=== PATIENT | male | born 1950 | race Caucasian/White ===

== ENCOUNTER 2022-04-24 07:47 | Inpatient (IN) | payer OTHER ==
[~2022-04-24] VITALS: Ht 177.8 cm; Wt 79.5 kg
[2022-04-24 08:33] LABS: International Normalized Ratio 1.4; Prothrombin Time Results 14.4 Sec (9.7-11.5)
[2022-04-24 08:37] LABS: Albumin/Globulin Ratio 0.6 (0.8-1.8); Bilirubin, Total 0.4 mg/dL (0.1-1.0); Bun/Creatinine Ratio 37.8 (12.0-20.0); Calcium, Blood 8.7 mg/dL (8.5-10.1); Creatinine, Blood 0.87 mg/dL (0.60-1.20); Globulin, Blood 3.3 g/dL (2.2-4.0); Potassium, Blood 4.6 mmol/L (3.5-5.5); Total Protein, Blood 5.3 g/dL (6.4-8.2)
[2022-04-24 08:39] LABS: BASOPHILS ABSOLUTE AUTO 0.05 K/mm3 (0.00-0.23); BASOPHILS PERCENT AUTO 0 % (0-2); EOSINOPHILS ABSOLUTE AUTO 0.03 K/mm3 (0.00-0.68); EOSINOPHILS PERCENT AUTO 0 % (0-6); Hematocrit 21.8 % (37.0-53.0); IMMATURE GRAN ABSOLUTE AUTO 0.81 K/mm3 (0.00-0.10); IMMATURE GRAN PERCENT AUTO 5 % (0-1); LYMPHOCYTES ABSOLUTE AUTO 1.77 K/mm3 (0.84-5.20); LYMPHOCYTES PERCENT AUTO 10 % (21-46); MONOCYTES ABSOLUTE AUTO 1.72 K/mm3 (0.16-1.47); MONOCYTES PERCENT AUTO 10 % (4-13); Mean Corpuscular HGB 24.2 pg (26.0-34.0); Mean Corpuscular HGB Conc 26.1 g/dL (31.5-36.5); Mean Corpuscular Volume 92 fL (80-100); Mean Platelet Volume 10.7 fL (9.1-12.4); NEUTROPHILS ABSOLUTE AUTO 13.71 K/mm3 (1.96-9.15); NEUTROPHILS PERCENT AUTO 76 % (41-73); NRBC ABSOLUTE 1.38 K/mm3 (0.00-0.02); NRBC Auto 7.6 /100 WBC (0.0-0.2); RDW Coefficient Variation 21.6 % (11.7-14.2); RDW Standard Deviation 70.6 fL (35.1-46.3); Red Blood Cell Count 2.36 M/mm3 (4.30-5.90); White Blood Cell Count 18.09 K/mm3 (4.00-11.30)
[2022-04-24 08:42] LABS: Platelet Count 1018 K/mm3 (150-400)
[2022-04-24 08:44] LABS: Hemoglobin 5.7 g/dL (13.5-17.5)
[2022-04-24 09:36] LABS: Source, Urine Foley catheter
[2022-04-24 09:43] LABS: Appearance, Urine Clear (Clear); Bilirubin, Urine Neg (Neg); Blood, Urine 2+ (Neg); Color, Urine Yellow (P-Yellow); Glucose Qualitative, Urine 1+ (Neg); Ketones, Urine 2+ (Neg); Leukocyte Esterase, Urine Neg (Neg); Nitrite, Urine Neg (Neg); Protein, Urine 3+ (Neg); Specific Gravity, Urine 1.025 (1.003-1.022); Urobilinogen, Urine NORM (Normal)
[2022-04-24 10:00] LABS: Calcium, Ionized (POC) 1.21 mmol/L (1.10-1.46); Chloride (POC) 105 mmol/L (98-108); Creatinine (POC) 3.6 mg/dL (0.8-1.3); Glucose (ISTAT POC) 137 mg/dL (70-99); Hemoglobin (POC) 6.8 g/dL (13.5-17.5); Potassium (POC) 5.7 mmol/L (3.5-5.5); Sodium (POC) 143 mmol/L (135-148); Total CO2 (POC) 28 mmol/L (21-32)
[2022-04-24 10:26] LABS: Bacteria Mod /hpf; Mucus Light (0-Heavy); Squamous Epithelial Cells Not Seen /hpf (Few)
[2022-04-24 10:27] LABS: Hyaline Casts 0-2 /lpf (0-2)
[2022-04-24 12:41] LABS: Hematocrit 24.4 % (37.0-53.0); Hemoglobin 7.4 g/dL (13.5-17.5)
--- NOTE | 2022-04-24 13:30 | NUR ---
ADMITTED TO ICU REPORT FROM KATHYA WOOD. PT ARRIVES AT 1315. ADMIT POST PEA ARREST. PT INTUBATED, VENT SETTINGS AC/VC 14/450/5/40%. LUNGS COARSE IN LLL, CLEAR IN OTHERS. THICK MONTALVO SECRETIONS THROUGH ETT, SENT TO LAB. 8.0 ETT, 23 AT [facility]. SR ON MONITOR, RATE 80'S. BP STABLE. WHILE SEDATION OFF DURING TRANSFER, PT SQUEEZED RIGHT HAND. OPENED EYES SPONT, DID NOT TRACK. WITHDRAWS TO PAIN. PROPOFOL RESTARTED AT 25 MCG/KG/MIN. ABD DISTENDED, TYMPANIC. MULTIPLE ATTEMPTS TO REPOSITION OGT, LIKELY HIATAL HERNIA. XRAY VIEW BY JASMIN CASTELLANOS TO PLACE TO LIS, SCANT BROWN EMESIS IN TUBE. VÁZQUEZ PATENT, DRAINING CLEAR YELLOW URINE TO GRAVITY. CODE STATUS OBTAINED FROM PREVIOUS ADMISSION, DNR.
[2022-04-24 17:35] LABS: PCO2 Arterial 55.1 mmHg (35-45); PO2 Arterial 60.9 mmHg (80-100); pH Blood Arterial 7.38 (7.35-7.45)
--- NOTE | 2022-04-24 17:41 | NUR ---
SHIFT SUMMARY NO ACUTE CHANGES THIS SHIFT. TURNED SEDATION OFF FOR SHORT PERIOD OF TIME, PT ABLE TO FOLLOW SIMPLE COMMANDS. CHANGED TO SPONT VENT SETTINGS, INCREASED RR, LOW TV, RESTARTED SEDATION AND SWITCHED BACK TO AC/VC. ATTEMPTED TO ADVANCE OGT UNSUCCESSFULLY. IN PROXIMAL STOMACH. OK FOR LIS PER DR QUINTERO. VÁZQUEZ PATENT, DRAINED 350 ML CLEAR YELLOW URINE TO GRAVITY. VSS. WILL CONTINUE TO MONITOR UNTIL REPORT TO ONCOMING NURSE.
[2022-04-24 18:03] LABS: Hematocrit 24.8 % (37.0-53.0); Hemoglobin 7.7 g/dL (13.5-17.5)
--- NOTE | 2022-04-24 19:00 | NUR ---
ASSUMED CARE ASSUMED CARE OF PATIENT. REMAINS INTUBATED- AC/VC 14/450/5/40%. RR 20s. SEDATED WITH PROPOFOL AT 20MCG/KG/MIN. OPENS EYES TO VERBAL STIMULI. FOLLOWS SIMPLE COMMANDS TO SQUEEZE HANDS AND WIGGLE TOES. BILATERAL SOFT WRIST RESTRAINTS IN PLACE TO PREVENT SELF-EXTUBATION. MONITOR SHOWS NSR, RATE 90s. BP STABLE. OG TO LIS WITH SCANT DRAINAGE. VÁZQUEZ PATENT AND DRAINING TO GRAVITY. SCDs TO BLE. SEE SHIFT ASSESSMENT FOR FULL ASSESSMENT.
[2022-04-24 21:22] LABS: SARS-Cov-2 (COVID-19) PCR, MMC NEGATIVE (NEGATIVE)
[2022-04-24 22:06] LABS: Hematocrit 25.5 % (37.0-53.0); Hemoglobin 7.8 g/dL (13.5-17.5)
[2022-04-25 03:43] LABS: BASOPHILS ABSOLUTE AUTO 0.04 K/mm3 (0.00-0.23); BASOPHILS PERCENT AUTO 0 % (0-2); EOSINOPHILS ABSOLUTE AUTO 0.02 K/mm3 (0.00-0.68); EOSINOPHILS PERCENT AUTO 0 % (0-6); Hematocrit 24.4 % (37.0-53.0); Hemoglobin 7.4 g/dL (13.5-17.5); IMMATURE GRAN ABSOLUTE AUTO 0.24 K/mm3 (0.00-0.10); IMMATURE GRAN PERCENT AUTO 1 % (0-1); LYMPHOCYTES ABSOLUTE AUTO 0.04 K/mm3 (0.84-5.20); LYMPHOCYTES PERCENT AUTO 0 % (21-46); MONOCYTES ABSOLUTE AUTO 1.32 K/mm3 (0.16-1.47); MONOCYTES PERCENT AUTO 8 % (4-13); Mean Corpuscular HGB 25.3 pg (26.0-34.0); Mean Corpuscular HGB Conc 30.3 g/dL (31.5-36.5); Mean Platelet Volume 10.6 fL (9.1-12.4); NEUTROPHILS PERCENT AUTO 90 % (41-73); NRBC Auto 11.3 /100 WBC (0.0-0.2); Platelet Count 820 K/mm3 (150-400); Red Blood Cell Count 2.92 M/mm3 (4.30-5.90); White Blood Cell Count 16.86 K/mm3 (4.00-11.30)
[2022-04-25 03:44] LABS: Mean Corpuscular Volume 84 fL (80-100)
[2022-04-25 04:05] LABS: Albumin, Blood 2.1 g/dL (3.4-5.0); Albumin/Globulin Ratio 0.7 (0.8-1.8); Bilirubin, Total 0.6 mg/dL (0.1-1.0); Bun/Creatinine Ratio 34.2 (12.0-20.0); Calcium, Blood 8.3 mg/dL (8.5-10.1); Creatinine, Blood 1.11 mg/dL (0.60-1.20); Globulin, Blood 3.1 g/dL (2.2-4.0); Total Protein, Blood 5.2 g/dL (6.4-8.2)
--- NOTE | 2022-04-25 06:25 | NUR ---
SHIFT SUMMARY NO ACUTE CHANGES DURING NOC. REMAINS INTUBATED- VENT SETTINGS UNCHANGED. SEDATED WITH PROPOFOL BETWEEN 20-40MCG/KG/MIN. NOW INFUSING AT 40MCG/KG/MIN. PT OPENS EYES SPONTANEOUSLY. MOVES EXTREMITIES WEAKLY. FOLLOWS SOME SIMPLE COMMANDS. BILATERAL SOFT WRIST RETRAINTS IN PLACE. OG TO LIS- SCANT DRAINAGE. ATTEMPTED TO INSERT OG FURTHER INTO STOMACH, BUT UNSUCCESSFUL. VÁZQUEZ PATENT AND DRAINING TO GRAVITY. NO S/S OF BLEEDING NOTED. LR INFUSING AT 150CC/HR PER ORDER. SCDs TO BLE. WILL REPORT TO ONCOMING RN WHEN AVAILABLE.
--- NOTE | 2022-04-25 07:44 | NUR ---
ASSUMED CARE REPORT FROM SAUMYA WOOD AT 0700. PT INTUBATED AND SEDATED. VENT SETTINGS AC/VC 14/450/5/40%. LUNGS COARSE THROUGHOUT. MODERATE AMOUNT OF THICK MONTALVO SECRETIONS THROUGH ETT. PT OPENS EYES, APPEARS TO TRACK. FOLLOWS SIMPLE COMMANDS. PROPOFOL GTT INFUSING. NSR ON MONITOR, RATE 90'S. BP STABLE. LR AT 150 ML/HR. ABD DISTENDED, FIRM, TYMPANIC. UNABLE TO ADVANCE OGMD Claudia AWARE, TO LIS, SCANT EMESIS IN SUCTION TUBING. VÁZQUEZ PATENT, DRAINING CLEAR YELLOW URINE TO GRAVITY. PLAN FOR POSSIBLE EXTUBATION TODAY. WILL CONTINUE TO MONITOR.
[2022-04-25 10:44] LABS: Percent Saturation 5.7 % (20.0-50.0)
[2022-04-25 10:49] LABS: Alpha Feto Protein, Tumor Mkr 1.4 ng/mL (0.0-8.0); Cancer Antigen 19-9 2.1 U/mL (2.0-37.0); Carcinoembryonic Antigen 1.7 ng/mL (0.0-3.0)
[2022-04-25 12:03] LABS: Hematocrit 25.9 % (37.0-53.0); Hemoglobin 7.9 g/dL (13.5-17.5)
[2022-04-25] MEDS ORDERED: HYDURE500 PO (14:12)
[2022-04-25] MEDS ORDERED: PRAZ1 PO (14:12)
[2022-04-25] MEDS ORDERED: STIOLTO RESPIMAT4 G1 INH (14:12)
--- NOTE | 2022-04-25 17:06 | NUR ---
SHIFT SUMMARY PT REMAINS INTUBATED AND SEDATED. NO EXTUBATION THIS SHIFT PER DR QUINTERO D/T PNA AND SECRETIONS. VENT SETTINGS AC/VC 14/450/5/50%. LUNGS CLEAR. SMALL/MODERATE AMOUNT OF THICK YELLOW SECRETIONS THROUGH ETT. PROPOFOL GTT FOR SEDATION. PT RESPONSES TO VERBAL STIMULI, FOLLOWS COMMANDS. TRACKS STAFF. FENTANYL AND VERSED GIVEN PRN FOR INCREASED RR AND PAIN. ST ON MONITOR, RATE 90-100'S. PT HAD SHORT PERIOD OF SELF RESOLVED TACHYCARDIA. OGT REPLACED THIS SHIFT, DIFFICULTIES ADVANCING. XRAY OBTAINED, OK FOR TRICKLE FEEDS PER DR QUINTERO. STARTED VHP AT 10 ML/HR c 50 ML FLUSHES q4 HR, GOAL 20 ML/HR c 100 ML FLUSHES q4 HR. ABD DISTENDED, SOFT, BT X 4. VÁZQUEZ PATENT, DRAINING YELLOW URINE c SEDIMENT TO GRAVITY. 500 ML OUT THIS SHIFT. WILL CONTINUE TO MONITOR UNTIL REPORT TO ONCOMING NURSE.
--- NOTE | 2022-04-25 19:00 | NUR ---
ASSUMED CARE ASSUMED CARE OF PATIENT. REMAINS INTUBATED- AC/VC 14/450/5/50%. RR MID-20s TO 30. SEDATED WITH PROPOFOL AT 40MCG/KG/MIN. PT OPENS EYES TO VERBAL STIMULI. INTERMITTENTLY FOLLOWS SIMPLE COMMANDS. MOVES ALL EXTREMITIES WEAKLY. BILATERAL SOFT WRIST RESTRAINTS IN PLACE TO PROTECT TUBES/LINES. MONITOR SHOWS ST, RATE 100-110. BP STABLE. TEMP 99.6F VIA VÁZQUEZ TEMP PROBE. OG WITH VITAL HIGH PROTEIN AT 10ML/HR (GOAL IS 20ML/HR). 100CC H20 FLUSH Q4H. VÁZQUEZ PATENT AND DRAINING TO GRAVITY. LR INFUSING AT 75CC/HR PER ORDER. SEE SHIFT ASSESSMENT FOR FULL ASSESSMENT.
[2022-04-26 03:32] LABS: Hematocrit 26.1 % (37.0-53.0); Hemoglobin 7.8 g/dL (13.5-17.5); Mean Corpuscular HGB 25.7 pg (26.0-34.0); Mean Corpuscular HGB Conc 29.9 g/dL (31.5-36.5); Mean Corpuscular Volume 86 fL (80-100); Mean Platelet Volume 10.6 fL (9.1-12.4); NRBC ABSOLUTE 2.31 K/mm3 (0.00-0.02); NRBC Auto 13.4 /100 WBC (0.0-0.2); Platelet Count 705 K/mm3 (150-400); RDW Coefficient Variation 20.9 % (11.7-14.2); RDW Standard Deviation 63.7 fL (35.1-46.3); Red Blood Cell Count 3.03 M/mm3 (4.30-5.90); White Blood Cell Count 17.23 K/mm3 (4.00-11.30)
[2022-04-26 03:50] LABS: Albumin, Blood 2.1 g/dL (3.4-5.0); Albumin/Globulin Ratio 0.6 (0.8-1.8); Bilirubin, Total 0.4 mg/dL (0.1-1.0); Bun/Creatinine Ratio 35.4 (12.0-20.0); Calcium, Blood 8.2 mg/dL (8.5-10.1); Creatinine, Blood 0.96 mg/dL (0.60-1.20); Globulin, Blood 3.4 g/dL (2.2-4.0); Magnesium, Blood 2.7 mg/dL (1.6-2.4); Phosphorus, Blood 3.8 mg/dL (2.5-4.9); Potassium, Blood 4.2 mmol/L (3.5-5.5); Total Protein, Blood 5.5 g/dL (6.4-8.2)
--- NOTE | 2022-04-26 06:11 | NUR ---
SHIFT SUMMARY NO ACUTE CHANGES. REMAINS INTUBATED- VENT SETTINGS UNCHANGED. SEDATED WITH PROPOFOL AT 40MCG/KG/MIN. MEDICATED WITH FENTANYL 25MCG IV X 1 DOSE AND 50MCG IV X 1 DOSE FOR COMFORT. CONTINUES TO OPEN EYES SPONTANEOUSLY AND TO OCCASIONALLY FOLLOW SIMPLE COMMANDS TO SQUEEZE HANDS AND WIGGLE TOES. BILATERAL SOFT WRIST RESTRAINTS IN PLACE TO PROTECT TUBES/LINES. MONITOR SHOWS ST, RATE 100-110. BP STABLE. TMAX 99.8F. OG WITH VITAL HIGH PROTEIN AT GOAL RATE OF 20CC/HR. 100CC H20 FLUSH Q4H. VÁZQUEZ PATENT AND DRAINING TO GRAVITY. LR INFUSING AT 75CC/HR PER ORDER. SCDs TO BLE. WILL REPORT TO ONCOMING RN WHEN AVAILABLE.
--- NOTE | 2022-04-26 08:51 | NUR ---
SEDATION HOLIDAY, STARTED 841, DR TROY AT BEDSIDE, REPORTED PAITENTS THICK CLEAR SPUTUMN WITH INCREASED AMOUNTS, PATIENT FAILED PREVIOUS SEDATION HOLIDAY DUE TO INCREASED RESP, INCREASED ANXIETY, UNCONSOLABLE. PATIENT TRACKS STAFF IN ROOM, DOES NOT FOLLOW DIRECTIONS. TM
--- NOTE | 2022-04-26 09:03 | NUR ---
PATIENT AWAKE, FOLLOWING DIRECTIONS, INCREASED RESPIRATIONS TO 24, PULLING AT RESTRAINTS, CONSOLABLE, ANSWERS YES/NO WITH HEAD, NOT ORIENTED, WCTM
--- NOTE | 2022-04-26 09:24 | NUR ---
PATIENT GRIMACING, RESP 40, FAILED SBT, WILL TRY AGAIN, PROPOFOL OFF SINCE 841, HEART RATE INCREASED TO 125
--- NOTE | 2022-04-26 10:46 | NUR ---
0951 PROPOFOL RESTARTED, DR BARBOUR AND DR ARANGO AT BEDSIDE, RESP INCREASED TO 50, PATIENT TO HAVE ANOTHER HOLIDAY TOMORROW, PATIENT NOT EXTUBATED TODAY. 1020 NIECE CRYSTAL IN VISITING PATIENT. RESP NOW 20
--- NOTE | 2022-04-26 18:06 | NUR ---
PATIENT WAKES, TRACKS MOVEMENT WITH HIS EYES, UNABLE TO CLEARLY MAKE NEEDS KNOWN, RESTRAINT SHRUTI SOFT WRIST. FAILED SEDATION HOLIDAY FOR POSSIBLE EXTUBATION, RESPIRATIONS, BP, AND HEART RATE INCREASED. RESP 50, RESP PRESENTLY 20, SATS 93, VENT ACVC 60% FIO2 5 PEEP, 14 RATE, 450 TV, SIZE 8, 26 AT THE LIPS. THICK YELLOW/WHITE SECRETIONS. REPOSITIONED ECERY 2 HOURS, GOOD PULSES, SBP 90-140S, LS- COARSE TO CLEAR, PAITENT COUGHS AND HAS GAG, TELE SR. BT ACTIVE, TUBE FEED 20 ML/HR, FLUSH 100ML [id number], VÁZQUEZ TO GRAVITY. FENTANYL AND ATIVAN PRN. PROPOFOL INFUSING AT 45 MC 19.8 ML/HR, LR @75 ML/HR. WILL RELAY TO PM RN, RICKY
--- NOTE | 2022-04-26 20:47 | NUR ---
ASSUMED CARE AT 1900 PT LAYING IN BED INTUBATED WITH VENT SETTINGS AC/VC 14/450/5/60%; RR HIGH 20'S TO LOW 30'S. PT SEDATED WITH PORPOFOL INFUSING AT 40MCG/KG/MIN; PT OPENS EYES TO SOUNDS AND ATTEMPTS TO ANSWER Y/N QUESTIONS; PT APPEARS VERY WEAK, AND UNBALE TO FOLLOW DIRECTIONS BUT ATTEMPTS TO. HR 100-115, SPB 100-110. VHP INFUSING VIA OG AT 25ML/HR; MINIMAL RESIDUALS. VÁZQUEZ IN PLACE AND DRAINING TO GRAVITY. LR INFUSING AT 75ML/HR. SEE SHIFT ASSESSMENT FOR FULL ASSESSMENT.
[2022-04-27 03:21] LABS: PCO2 Arterial 60.1 mmHg (35-45); PO2 Arterial 69.8 mmHg (80-100); pH Blood Arterial 7.36 (7.35-7.45)
[2022-04-27 03:43] LABS: Hematocrit 26.8 % (37.0-53.0); Hemoglobin 7.7 g/dL (13.5-17.5); Mean Corpuscular HGB 25.7 pg (26.0-34.0); Mean Corpuscular HGB Conc 28.7 g/dL (31.5-36.5); Mean Corpuscular Volume 89 fL (80-100); Platelet Count 628 K/mm3 (150-400); RDW Coefficient Variation 21.5 % (11.7-14.2); RDW Standard Deviation 68.4 fL (35.1-46.3)
[2022-04-27 03:47] LABS: BASOPHILS ABSOLUTE AUTO 0.04 K/mm3 (0.00-0.23); BASOPHILS PERCENT AUTO 0 % (0-2); EOSINOPHILS ABSOLUTE AUTO 0.29 K/mm3 (0.00-0.68); EOSINOPHILS PERCENT AUTO 2 % (0-6); IMMATURE GRAN ABSOLUTE AUTO 0.46 K/mm3 (0.00-0.10); IMMATURE GRAN PERCENT AUTO 3 % (0-1); LYMPHOCYTES PERCENT AUTO 3 % (21-46); MONOCYTES ABSOLUTE AUTO 1.14 K/mm3 (0.16-1.47); MONOCYTES PERCENT AUTO 7 % (4-13); NEUTROPHILS ABSOLUTE AUTO 13.17 K/mm3 (1.96-9.15); NEUTROPHILS PERCENT AUTO 84 % (41-73); NRBC ABSOLUTE 5.05 K/mm3 (0.00-0.02); NRBC Auto 32.4 /100 WBC (0.0-0.2)
[2022-04-27 04:03] LABS: Albumin, Blood 1.9 g/dL (3.4-5.0); Albumin/Globulin Ratio 0.5 (0.8-1.8); Bilirubin, Total 0.3 mg/dL (0.1-1.0); Bun/Creatinine Ratio 42.8 (12.0-20.0); Calcium, Blood 8.3 mg/dL (8.5-10.1); Creatinine, Blood 0.8 mg/dL (0.60-1.20); Globulin, Blood 3.5 g/dL (2.2-4.0); Magnesium, Blood 2.7 mg/dL (1.6-2.4); Phosphorus, Blood 3.6 mg/dL (2.5-4.9); Potassium, Blood 4.5 mmol/L (3.5-5.5); Total Protein, Blood 5.4 g/dL (6.4-8.2)
--- NOTE | 2022-04-27 04:49 | NUR ---
SBT ATTEMPTED SBT, PROPOFOL TITRATED DOWN TO SB. HR AND BP DID NOT ELEVATE BUT RR WAS 50+ WITH LOW TIDAL VOLUMES. SEE RT DOCUMENTATION FOR MORE DETAILS. PT PLACED BACK ON PREVIOUS VENT SETTINGS AND PROPOFOL STARTED BACK AT 40MCG/KG/MIN.
--- NOTE | 2022-04-27 05:40 | NUR ---
END OF SHIFT SUMMARY NO ACUTE EVENTS OVER NIGHT. PT CONT TO BE INTUBATED WITH VENT SETTINGS AC/VC 14/450/5/60%; SEE RN NOTE REGARDING SBT. PT CONT TO BE RESONSIVE TO VERBAL STIMULI; WHILE PROPOFOL WAS TITRATED TO SB, PT WOKE UP MORE AND WAS MOVING BUE MORE AND FOLLOWING DIRECTIONS; PROPOFOL STARTED AGAIN AT 40MCG/KG/MIN AFTER SBT. AFEBRILE. HR 90-120; PT HR INCREASED TO THE 140'S TWICE FOR A SHORT AMOUNT OF TIME AND THEN RETURNED TO 90'S. SBP 100-110. VÁZQUEZ IN PLACE WITH 550ML OUTPUT. TF INFUSING AT GOAL OF 25ML/HR. WILL REPORT TO AM RN WHEN AVIALBLE.
--- NOTE | 2022-04-27 07:29 | NUR ---
INTUBATED AND SEDATED, PROPOFOL AT 40 MCG, VENT ACVC PEEP 5, FIO2 60%, TV 450, RATE 14, 26 AT THE LIPS SIZE 8, PUPILS BRISK, OPENS EYES TO VOICE, REPOSITIONED, SEDATION HOLIDAY THIS AM BY NETWORK MANAGEMENT SPECIALIST, RESTRAINTS ON, WC
--- NOTE | 2022-04-27 12:28 | NUR ---
DR BARBOUR IN ROOM WITH PATIENTS VIKTORIYA DERAS THE POINT OF CONTACT AT 1031, VIKTORIYA DERAS TOOK PAITENTS WALLET AND CELL PHONE HOME, PALLIATIVE CARE REPORTED TO FOR PATIENT NEEDS AND OUTCOME, INCREASED OXYGEN NEED AFTER REPOSITION AND CHNAGING SHEETS, INCREASED SECRETIONS AND SUCTION, SATS STAYED 80-88%, FIO2 INCREASED TO 70%, SATS NOW 92%, RESTRAINTS ON, WCTM
--- NOTE | 2022-04-27 18:26 | NUR ---
PROPOFOL INFUSING AT 40 MCG, PATIENT UNABLE TO MAKE NEEDS KNOWN, SIZE 8 26 AT THE LIP ET TUBE, ACVC RATE 14 PEEP 5 TV 450 FIO2 65%. PUPILS BRISK, TEMP 99-100.0 VÁZQUEZ, BLANKETS REMOVED, FAN TO PATIENT. LS COARSE TO DIMINSHED AFTER SUCTION, SECRETION THICK WHITE AND MONTALVO COLORED, PATIENT DID NOT TOLERATE REPOSITIONING WELL TODAY, FIO2 WAS INCREASED TO 70% TO KEEP SATS AT 90%, FIO2 AT 65% NOW SATS 91%, RESP 28. TELEMETRY SR/ST, MEDICATED WITH LOPRESSOR TODAY FOR INCREASED HEWART RATE TO 150S, HEART RATE NOW 102. TB AT 25 ML/HR, FLUSHES INCREASED TO 200 ML Q4H. TEMP VÁZQUEZ TO GRAVITY. SPUTUMN SAMPLE NEEDED. PALLIATIVE CARE CONSULT IN, PALLIATIVE CARE NURSE INCONTACT WITH FAMILY, DR BARBOUR UPDATED PATIENTS NIECE MAIN CONTACT CRYSTAL TODAY, RESTRAINTS IN PLACE, WILL RELAY TO PM RN, WCTM
--- NOTE | 2022-04-27 20:23 | NUR ---
ASSUMED CARE AT 1900 PT LAYING IN BED INTUBATED WITH VENT SETTINGS AC/VC 14/450/5/70%; SPUTUM SAMPLE SENT. PT NOT RESPONSIVE PREVIOUS DAY; PROPOFOL TITRATED DWON TO 30MCG/KG/MIN, AND FENTANYL GIVEN RIGHT BEFORE SHIFT CHANGE; PT HAS NOT OPENED HIS EYES OR ATTEMPTED TO FOLLOW DIRECITONS; ONLY REACTIVE TO NOXIOUS STIMULI AND PERSONAL CARE; WEAK GAG WHEN COMPAIRED TO YESTERDAY; EYES MORE SUNKEN IN TOO. TEMP 100.0. HR 100-110, SBP 90-100. PIVOT INFUSING VIA OG AT 25ML/HR WITH WITH 200ML FLUSHES Q4HR; MINIMAL RESIDUALS. VÁZQUEZ IN PLACE AND DRAINING TO GRAVITY. SEE SHIFT ASSESSMENT FOR FULL ASSESSMENT.
[2022-04-28 03:59] LABS: Hematocrit 25.9 % (37.0-53.0); Hemoglobin 7.3 g/dL (13.5-17.5); Mean Corpuscular HGB 25.4 pg (26.0-34.0); Mean Corpuscular HGB Conc 28.2 g/dL (31.5-36.5); Mean Corpuscular Volume 90 fL (80-100); Mean Platelet Volume 12.1 fL (9.1-12.4); NRBC ABSOLUTE 10.58 K/mm3 (0.00-0.02); NRBC Auto 64.9 /100 WBC (0.0-0.2); Platelet Count 643 K/mm3 (150-400); RDW Coefficient Variation 22.6 % (11.7-14.2); RDW Standard Deviation 71.7 fL (35.1-46.3); Red Blood Cell Count 2.87 M/mm3 (4.30-5.90); White Blood Cell Count 16.31 K/mm3 (4.00-11.30)
[2022-04-28 04:18] LABS: Magnesium, Blood 2.9 mg/dL (1.6-2.4)
[2022-04-28 04:19] LABS: Bun/Creatinine Ratio 54.1 (12.0-20.0); Calcium, Blood 8.2 mg/dL (8.5-10.1); Creatinine, Blood 0.89 mg/dL (0.60-1.20); Phosphorus, Blood 3.9 mg/dL (2.5-4.9); Potassium, Blood 5.3 mmol/L (3.5-5.5)
[2022-04-28 04:41] LABS: BAND PERCENT MAN 5 % (0-8); BASOPHILS PERCENT MAN 0 % (0-2); EOSINOPHILS ABSOLUTE MAN 0.48 K/mm3 (0.00-0.68); EOSINOPHILS PERCENT MAN 3 % (0-6); LYMPHOCYTES ABSOLUTE MAN 0.32 K/mm3 (0.84-5.20); LYMPHOCYTES PERCENT MAN 2 % (21-46); MONOCYTES PERCENT MAN 8 % (4-13); MYELOCYTE ABSOLUTE MAN 0.16 K/mm3 (0.00-0.00); MYELOCYTE PERCENT MAN 1 % (0-0); NEUTROPHILS ABSOLUTE MAN 14.02 K/mm3 (1.96-9.15); SEG NEUTROPHILS PERCENT MAN 81 % (41-73); TOTAL CELLS COUNTED 100
--- NOTE | 2022-04-28 05:53 | NUR ---
END OF SHIFT SUMMARY NO ACUTE EVENTS OVER NIGHT. PT CONT TO BE INTUBATED WITH VENT SETTINGS 14/450/5/70%; SMALL AMOUNT OF SECREATIONS FROM ETT; RR LOW 30'S. PT CONT TO BE LESS RESPONSIVE THAN THE PREVIOUS DAY EVEN WHEN PROPOFOL TITRATED DOWN; WILL OCCATIONALLY GRIMICE BUT HAS NOT TRACKED LIKE YESTERDAY. MAX TEMP 100.3, TEMP NOW 99.3. HR 90-120; ONE INSTANCE OF PT HR DRAMATICALLY INCREASING TO 170 FOR A FEW SECONDS AND THEN RETURNED TO LOW 100'S. SBP 100-110. VÁZQUEZ IN PLACE WITH 600ML URINE OUTPUT. WILL REPORT TO AM RN WHEN AVAILABLE.
--- NOTE | 2022-04-28 08:00 | NUR ---
PT REMAINS INTUBATED AND MECHANICALLY VENTILATED. BRIEF SEDATION VACATION GIVEN. AFTER APROXIMATELY 5 MINUTES, PT EYES OPEN, BUT NOT TRACKING. PT GRIMACING AND COUGHING. +GAG-PUPILS 3 MM AND BRISK. PT NOT FOLLOWING COMMANDS. SOFT WRIST RESTRAINTS IN PLACE TO PREVENT ACCIDENTAL EXTUBATION/PULLING ON LINES AND TUBES. RR 50'S DURING SEDATION VACATION. THEREFORE, PROPOFOL RESUMED @ 30 MCG/KG/MIN. TEMP 99.[address] WITH RATE 100'S. SBP TRENDING 90-110'S. 2+ PEDAL EDEMA NOTED AND DP/PT PULSES PER DOPPLER. LUNGS DIMINISHED IN THE BASES. ETT TO VENT: AC/VC 14, RR 30'S-50'S (DEPENDING ON AGITATION) TV 450, PEEP 5, FIO2 65%-SATS>90%. ETT SUCTION PRODUCTIVE OF SCANT AMOUNT OF THICK, WHITE SPUTUM. PT ABDOMEN IS DISTENDED AND FIRM. POST SURGICAL SCAR NOTED TO MIDLINE. PT HAS AREA SURROUNDING HIS SCAR THAT IS SOFT AND WHEN PT COUGHS, THE CARE PROTRUDES. BT'S HYPERACTIVE X 4. PT TOLERATING OGTF WELL PIVOT 1.5 @ 25 CC/HR AND H20 200 CC FLUSH EVERY 4 HOURS-MINIMAL RESIDUAL. VÁZQUEZ TO BSD WITH SMALL AMOUNT OF YELLOW URINE TO UROMETER. SKIN IS PALE AND FRAIL, BUT NO NOTED BREAKDOWN.
--- NOTE | 2022-04-28 08:20 | NUR ---
PT COUGHING, GRIMACING, AND RR 40'S DESPITE RESUMPTION OF PROPOFOL-MED WITH FENTANYL 50 MCG IVP FOR PAIN/SEDATION ADJUNCT.
--- NOTE | 2022-04-28 08:52 | NUR ---
DR. BARBOUR HERE TO SEE PT-FULL UPDATE GIVNE. PT SATS DROPPED TO 82% AND RR 40'S. FIO2 INCREASED TO 100% AND PEEP OF 10 TO KEEP SATS>90% PROPOFOL HAS BEEN PLACED ON STANDBY PER DR. BARBOUR VERBAL ORDER. STAT CXR ORDERED.
--- NOTE | 2022-04-28 09:30 | NUR ---
PT INCONTINENT OF XTRA LARGE BLACK, LIQUID STOOL. RECTAL TUBE PLACED. PARTIAL BATH AND COMPLETE LINEN CHANGE COMPLETED. PT OPENING EYES SPONTANEOUSLY AND NOW TRACKING TO VOICE. PT DID WIGGLE HIS TOES TO COMMAND. DR. BARBOUR AT BEDSIDE TO SEE PT. PT NODDED "YES" WHEN DR. BARBOUR ASKED HIM IF HE WAS THERE AND SHOOK HIS HEAD "NO" WHEN ASKED IF HE WAS SHORT OF BREATH.
--- NOTE | 2022-04-28 10:40 | NUR ---
PT AWAKE, ALERT, TRACKING, AND NODDING APPROPRIATELY TO "YES" OR "NO" QUESTIONS. DR. BARBOUR UPDATED. PROPOFOL DRIP RESUMED @ 30 MCG/KG/MIN. ANTICIPATE CT SCAN LATER TODAY.
--- NOTE | 2022-04-28 12:00 | NUR ---
PT TO CT OF HEAD AND CT ANGIO CHEST. PT TOLERATED WELL ON PROPOFOL @ 40 MCG/KG/MIN. RR 24 SATS>90% STILL ON PEEP OF 10, BUT FIO2 TITRATED DOWN TO 90%. PT FAMILY IN FOR BRIEFT VISIT PRIOR TO TRANSPORT TO CT. THEY WILL VISIT AGAIN LATER THIS AFTERNOON.
--- NOTE | 2022-04-28 15:17 | NUR ---
DR. BARBOUR UPDATED PT POA CRYSTAL OF CURRENT STATUS AND CT RESULTS. AFTER FAMILY DISCUSSION, IT WAS DECIDED TO MAKE PT COMFORT CARE.
--- NOTE | 2022-04-28 16:44 | NUR ---
PT FAMILY AND PASTOR ALONSO IN FOR PRAYER.
--- NOTE | 2022-04-28 16:46 | NUR ---
Call back - Pt's neices/nephew were present and greiving appropriately. Family given space to reminisce about "Luke." Comments were positive seasoned with appropriate humor. Audible prayer extended and the family verbalized gratitude.
--- NOTE | 2022-04-28 16:54 | NUR ---
PT MEDICATED WITH MORPHINE SULFATE 5 MG IVP AND ATIVAN 2 MG IVP X 1-ATROPINE 3 DROPS VIA ETT, THEN EXTUBATED AND MADE COMFORT CARE STATUS. PT ELIO DERAS AND OTHER FAMILY MEMBERS AT BEDSIDE.
== END 2022-04-28 17:25 | DRG 870 ==
LOC: ER 07:47 → ICUW 12:28
PROVIDERS: Emergency Medicine; Internal Medicine; Internal Medicine Critical Care Medicine; Nurse Practitioner Acute Care; ADMIT Internal Medicine
PROC: 5A1955Z Respiratory Ventilation, Greater than 96 Consecutive Hours (ICD-10-PCS; principal; 2022-04-24)
PROC: 0BH18EZ Insertion of Endotracheal Airway into Trachea, Via Natural or Artificial Opening Endoscopic (ICD-10-PCS; 2022-04-24)
PROC: 5A12012 Performance of Cardiac Output, Single, Manual (ICD-10-PCS; 2022-04-24)
PROC: 0DH67UZ Insertion of Feeding Device into Stomach, Via Natural or Artificial Opening (ICD-10-PCS; 2022-04-24)
PROC: 30233N1 Transfusion of Nonautologous Red Blood Cells into Peripheral Vein, Percutaneous Approach (ICD-10-PCS; 2022-04-24)
PROC: 3E03329 Introduction of Other Anti-infective into Peripheral Vein, Percutaneous Approach (ICD-10-PCS; 2022-04-24)
PROC: 3E033XZ Introduction of Vasopressor into Peripheral Vein, Percutaneous Approach (ICD-10-PCS; 2022-04-24)
DX: A41.50 Gram-negative sepsis, unspecified (principal); J15.6 Pneumonia due to other Gram-negative bacteria; J96.01 Acute respiratory failure with hypoxia; I81 Portal vein thrombosis; K92.2 Gastrointestinal hemorrhage, unspecified; E87.0 Hyperosmolality and hypernatremia; C94.6 Myelodysplastic disease, not elsewhere classified; R18.8 Other ascites; J90 Pleural effusion, not elsewhere classified; R64 Cachexia; I46.9 Cardiac arrest, cause unspecified; Z66 Do not resuscitate; Q27.39 Arteriovenous malformation, other site; Z51.5 Encounter for palliative care; Z20.822 Contact with and (suspected) exposure to COVID-19; I27.20 Pulmonary hypertension, unspecified; N40.0 Benign prostatic hyperplasia without lower urinary tract symptoms; D75.839 Thrombocytosis, unspecified; E86.1 Hypovolemia; F17.290 Nicotine dependence, other tobacco product, uncomplicated; F32.A Depression, unspecified; D63.8 Anemia in other chronic diseases classified elsewhere; J43.9 Emphysema, unspecified; K55.20 Angiodysplasia of colon without hemorrhage; R77.8 Other specified abnormalities of plasma proteins; K86.9 Disease of pancreas, unspecified; Z90.81 Acquired absence of spleen; Z98.890 Other specified postprocedural states; Z79.899 Other long term (current) drug therapy; Z78.1 Physical restraint status
CPT/HCPCS: 31500; 31720; 36415; 36430; 36600; 51702; 70450; 71045; 71260; 74177; 80047; 80048; 80053; 81001; 82105; 82272; 82330; 82378; 82728; 82803; 82947; 83540; 83550; 83605; 83735; 84100; 84145; 84484; 85014; 85018; 85025; 85027; 85379; 85610; 85730; 86301; 86850; 86900; 86901; 86920; 87040; 87070; 87086; 87205; 92950; 93005; 93010; 93306; 94002; 94003; 94640; 94664; 96365-59; 96366-59; 96367-59; 96375-59; 99291-25; A9270; C1751; C9113; G0480; J0456; J0696; J2060; J2250; J2270; J2704; J3010; J7030; J7050; J7060; J7120; P9016; Q9967; U0004